=== PATIENT | female | born 1995 | race Caucasian/White ===

== ENCOUNTER 2024-01-17 14:34 | Emergency (ER) | payer OTHER ==
[~2024-01-17] VITALS: Ht 149.9 cm; Wt 47.7 kg
[2024-01-17 14:51] VITALS: TEMP 98.2
[2024-01-17 16:03] LABS: BASO # 0.1 K/mm3 (0.0-0.2); BASO % 0.7 % (0.0-2.0); EOS # 0.1 K/mm3 (0.0-0.7); EOS % 0.8 % (0.0-4.0); GRAN # 4.2 K/mm3 (1.4-6.5); GRAN % 59.4 % (42.2-75.2); HEMOGLOBIN 12.9 g/dl (12.5-16.0); LYMPH # 2.4 K/mm3 (1.2-3.4); LYMPH % 33.1 % (20.0-51.0); MEAN CELL VOLUME 87 fl (80.0-100.0); MEAN CORPUSCULAR HEMOGLOBIN 31 pg (27-31); MEAN CORPUSCULAR HGB CONC 35 g/dl (33.0-37.0); MEAN PLATELET VOLUME 10.1 fl (7.4-10.4); MONO # 0.4 K/mm3 (0.1-0.6); MONO % 5.9 % (1.7-9.3); PLATELET COUNT 235 K/mm3 (130-400); RED BLOOD COUNT 4.22 M/mm3 (4.10-5.30)
[2024-01-17 16:04] LABS: HEMATOCRIT 36.9 % (37.0-47.0)
[2024-01-17 16:11] LABS: PH 6.5 (5.0-8.5); URINE BLOOD 1+ (NEGATIVE); URINE COLOR YELLOW (YELLOW); URINE GLUCOSE NEGATIVE (NEGATIVE); URINE KETONE NEGATIVE (NEGATIVE); URINE NITRATE NEGATIVE (NEGATIVE); URINE PROTEIN(semi-quant) NEGATIVE (NEGATIVE); URINE UROBILINOGEN 0.2 E.U/dL (0.2-1.0)
[2024-01-17 16:12] LABS: URINE APPEARANCE Clear (CLEAR/HAZY)
[2024-01-17 16:34] LABS: COLLECTION METHOD CLEAN CATCH
[2024-01-17 19:00] VITALS: BP 123/79; PULSE 82
[2024-01-17] MEDS ORDERED: Rho(D) Imm Globulin 1,500 UNITS (300 MCG)/2 ML SYRINGE IV\\IM SCH (19:00)
== END 2024-01-17 19:00 | disposition home or self-care (01) ==
LOC: COL.ER 14:34
PROVIDERS: Physician Assistant
DX: O20.9 Hemorrhage in early pregnancy, unspecified (principal); Z3A.01 Less than 8 weeks gestation of pregnancy
CPT/HCPCS: J2791